=== PATIENT | female | born 1970 | race American Indian/Alaskan Native ===

== ENCOUNTER 2018-08-02 11:31 | Inpatient (IN) | payer MEDICARE ==
[2018-08-02] MEDS ORDERED: NACL 0.9% 1000 ML 1,000 ML IV ONE (11:47)
--- NOTE | 2018-08-02 12:05 | Emergency Department Report ---
ED Neuro Deficit HPI - General Chief Complaint: Hyperglycemia Stated Complaint: SLURRED SPEECH Time Seen by Provider: 08/02/18 11:34 Source: family, EMS Mode of arrival: Stretcher Limitations: Other - History of Present Illness Initial Comments: Ms. Fox is a 48 yo female with hx of TBI, Moyamoya disease, type 2 diabetes, seizure disorder, dysplipidemia who presents with elevate blood sugar and slurred speech. The majority of history was obtained from Hortencia HOLLAND/best friend . Ms. Fox was recently seen in hospital in ER in [place] for elevated blood sugar. She then was hospitalized and recently discharged [facility] for elevated blood sugar. Since blood sugar was greater than 300, patient and roommate called 911. She has had slurred speech since Thursday. Slurred speech according to both POA and roommate occurs with elevated blood sugar. She has been evaluated at [facility] and [facility] for slurred speech episodes. According to POA, stroke has been ruled out with abnormal speech episodes. She lives between [place] and [place]. She is followed regularly by her physicians in the [facility]. Normally, she is fluid, articulate speech. Diabetes has been uncontrolled. She is now on sliding scale insulin. POA does not feel that Ms. oFx takes care of health. Ms. Fox states "I'm all right." She denies pain or illness. She desires food to eat. -: Gradual, days(s) (3) Location: speech History of same: Yes Place: home Severity: mild Improves With: medication Worsens With: other (elevated blood sugar) Context: gradual onset Associated Symptoms: denies other symptoms - Related Data Allergies/Adverse Reactions: Allergies Allergy/AdvReac Type Severity Reaction Status Date / Time No Known Allergies Allergy Unverified 08/02/18 11:54 ED Review of Systems ROS: Stated complaint: SLURRED SPEECH Other details as noted in HPI Comment: All other systems reviewed and negative Constitutional: denies: fever, malaise ENT: denies: ear pain Respiratory: denies: cough Cardiovascular: denies: chest pain ED Past Medical Hx - Past Medical History Previous Medical History?: Yes Hx Diabetes: Yes (type 2-uncontrolled) Hx Seizures: Yes Additional medical history: hyperlipidemia. moyamoya syndrome-causing intracranial arteriopathy. metabolic encephalopathy - Surgical History Past Surgical History?: Yes Additional Surgical History: brain surgery x2 due to moyamoya disease - Social History Smoking Status: Never Smoker Substance Use Type: None ED Neuro Physical Exam - General Limitations: Other General appearance: alert, in no apparent distress Suspected Stroke: Yes - Head Head exam: Present: atraumatic, normocephalic - Eye Eye exam: Present: normal appearance - ENT ENT exam: Present: mucous membranes moist - Neck Neck exam: Present: normal inspection, full ROM. Absent: tenderness, meningismus - Respiratory Respiratory exam: Present: normal lung sounds bilaterally. Absent: respiratory distress, wheezes, rales, rhonchi - Cardiovascular Cardiovascular Exam: Present: regular rate, normal rhythm, normal heart sounds. Absent: systolic murmur, diastolic murmur, rubs, gallop - GI/Abdominal GI/Abdominal exam: Present: soft, normal bowel sounds. Absent: distended, tenderness, guarding, rebound - Extremities Exam Extremities exam: Present: normal inspection - Back Exam Back exam: Present: normal inspection - Neurological Exam Neurological exam: Present: alert, oriented X3 - NIHSS Assessment Interval: Baseline 1a. Level of Consciousness: alert/keenly responsive 1b. LOC Questions: answers both correctly 1c. LOC Commands: performs tasks correctly 2. Best Gaze: normal 3. Visual: no visual loss 4. Facial Palsy: normal symmetrical movement 5b. Motor Arm Right: no drift 5a. Motor Arm Left: no drift 6a. Motor Leg Left: no drift 6b. Motor Leg Right: no drift 7. Limb Ataxia: absent 8. Sensory: normal 9. Best Language: no aphasia 10. Dysarthria: mild/moderate dysarthria 11. Extinction/Inattention: no abnormality Total Score: 1 Stroke Severity: Minor Stroke - Psychiatric Psychiatric exam: Present: normal affect, normal mood - Skin Skin exam: Present: warm, dry, intact, normal color. Absent: rash ED Course Vital Signs 08/02/18 08/02/18 08/02/18 11:38 11:39 11:41 Temperature 98.6 F Pulse Rate 108 H Blood Pressure 142/87 O2 Sat by Pulse 98 97 Oximetry - Lab Data Result diagrams: 08/02/18 12:03 08/02/18 12:03 Lab Results 08/02/18 08/02/18 08/02/18 Range/Units 11:53 11:58 12:03 WBC 8.7 (4.5-11.0) K/mm3 RBC 5.91 H (3.65-5.03) M/mm3 Hgb 12.4 (10.1-14.3) gm/dl Hct 37.9 (30.3-42.9) % MCV 64 L (79-97) fl MCH 21 L (28-32) pg MCHC 33 (30-34) % RDW 15.6 H (13.2-15.2) % Plt Count 276 (140-440) K/mm3 Lymph % (Auto) 39.1 H (13.4-35.0) % [place] % (Auto) 8.4 H (0.0-7.3) % Eos % (Auto) 1.5 (0.0-4.3) % Baso % (Auto) 0.6 (0.0-1.8) % Lymph # 3.4 (1.2-5.4) K/mm3 [place] # 0.7 (0.0-0.8) K/mm3 Eos # 0.1 (0.0-0.4) K/mm3 Baso # 0.0 (0.0-0.1) K/mm3 Seg Neutrophils % 50.4 (40.0-70.0) % Seg Neutrophils # 4.4 (1.8-7.7) K/mm3 PT (12.2-14.9) Sec. INR (0.87-1.13) Sodium (137-145) mmol/L Potassium (3.6-5.0) mmol/L Chloride (98-107) mmol/L Carbon Dioxide (22-30) mmol/L Anion Gap mmol/L BUN (7-17) mg/dL Creatinine (0.7-1.2) mg/dL Estimated GFR ml/min BUN/Creatinine Ratio % Glucose (65-100) mg/dL POC Glucose 200 H (70-105) Calcium (8.4-10.2) mg/dL Troponin T < 0.010 (0.00-0.029) ng/mL Urine Color (Yellow) Urine Turbidity (Clear) Urine pH (5.0-7.0) Ur Specific [place] (1.003-1.030) Urine Protein (Negative) mg/dL Urine Glucose (UA) (Negative) mg/dL Urine Ketones (Negative) mg/dL Urine Blood (Negative) Urine Nitrite (Negative) Urine Bilirubin (Negative) Urine Urobilinogen (<2.0) mg/dL Ur Leukocyte Esterase (Negative) Urine WBC (Auto) (0.0-6.0) /HPF Urine RBC (Auto) (0.0-6.0) /HPF U Epithel Cells (Auto) (0-13.0) /HPF Urine Mucus /HPF Urine Opiates Screen Urine Methadone Screen Ur Barbiturates Screen Ur Phencyclidine Scrn Ur Amphetamines Screen U Benzodiazepines Scrn Urine Cocaine Screen U Marijuana (THC) Screen Drugs of Abuse Note 08/02/18 08/02/18 08/02/18 Range/Units 12:03 12:03 13:38 WBC (4.5-11.0) K/mm3 RBC (3.65-5.03) M/mm3 Hgb (10.1-14.3) gm/dl Hct (30.3-42.9) % MCV (79-97) fl MCH (28-32) pg MCHC (30-34) % RDW (13.2-15.2) % Plt Count (140-440) K/mm3 Lymph % (Auto) (13.4-35.0) % [place] % (Auto) (0.0-7.3) % Eos % (Auto) (0.0-4.3) % Baso % (Auto) (0.0-1.8) % Lymph # (1.2-5.4) K/mm3 [place] # (0.0-0.8) K/mm3 Eos # (0.0-0.4) K/mm3 Baso # (0.0-0.1) K/mm3 Seg Neutrophils % (40.0-70.0) % Seg Neutrophils # (1.8-7.7) K/mm3 PT 13.0 (12.2-14.9) Sec. INR 0.93 (0.87-1.13) Sodium 135 L (137-145) mmol/L Potassium 3.5 L (3.6-5.0) mmol/L Chloride 97.8 L (98-107) mmol/L Carbon Dioxide 21 L (22-30) mmol/L Anion Gap 20 mmol/L BUN 14 (7-17) mg/dL Creatinine 1.0 (0.7-1.2) mg/dL Estimated GFR 59 ml/min BUN/Creatinine Ratio 14 % Glucose 229 H (65-100) mg/dL POC Glucose (70-105) Calcium 9.6 (8.4-10.2) mg/dL Troponin T (0.00-0.029) ng/mL Urine Color Yellow (Yellow) Urine Turbidity Clear (Clear) Urine pH 5.0 (5.0-7.0) Ur Specific [place] 1.021 (1.003-1.030) Urine Protein 30 mg/dl (Negative) mg/dL Urine Glucose (UA) 150 (Negative) mg/dL Urine Ketones Tr (Negative) mg/dL Urine Blood Neg (Negative) Urine Nitrite Neg (Negative) Urine Bilirubin Neg (Negative) Urine Urobilinogen < 2.0 (<2.0) mg/dL Ur Leukocyte Esterase Lg (Negative) Urine WBC (Auto) 42.0 H (0.0-6.0) /HPF Urine RBC (Auto) 3.0 (0.0-6.0) /HPF U Epithel Cells (Auto) 2.0 (0-13.0) /HPF Urine Mucus Few /HPF Urine Opiates Screen Urine Methadone Screen Ur Barbiturates Screen Ur Phencyclidine Scrn Ur Amphetamines Screen U Benzodiazepines Scrn Urine Cocaine Screen U Marijuana (THC) Screen Drugs of Abuse Note 08/02/18 Range/Units 13:38 WBC (4.5-11.0) K/mm3 RBC (3.65-5.03) M/mm3 Hgb (10.1-14.3) gm/dl Hct (30.3-42.9) % MCV (79-97) fl MCH (28-32) pg MCHC (30-34) % RDW (13.2-15.2) % Plt Count (140-440) K/mm3 Lymph % (Auto) (13.4-35.0) % [place] % (Auto) (0.0-7.3) % Eos % (Auto) (0.0-4.3) % Baso % (Auto) (0.0-1.8) % Lymph # (1.2-5.4) K/mm3 [place] # (0.0-0.8) K/mm3 Eos # (0.0-0.4) K/mm3 Baso # (0.0-0.1) K/mm3 Seg Neutrophils % (40.0-70.0) % Seg Neutrophils # (1.8-7.7) K/mm3 PT (12.2-14.9) Sec. INR (0.87-1.13) Sodium (137-145) mmol/L Potassium (3.6-5.0) mmol/L Chloride (98-107) mmol/L Carbon Dioxide (22-30) mmol/L Anion Gap mmol/L BUN (7-17) mg/dL Creatinine (0.7-1.2) mg/dL Estimated GFR ml/min BUN/Creatinine Ratio % Glucose (65-100) mg/dL POC Glucose (70-105) Calcium (8.4-10.2) mg/dL Troponin T (0.00-0.029) ng/mL Urine Color (Yellow) Urine Turbidity (Clear) Urine pH (5.0-7.0) Ur Specific [place] (1.003-1.030) Urine Protein (Negative) mg/dL Urine Glucose (UA) (Negative) mg/dL Urine Ketones (Negative) mg/dL Urine Blood (Negative) Urine Nitrite (Negative) Urine Bilirubin (Negative) Urine Urobilinogen (<2.0) mg/dL Ur Leukocyte Esterase (Negative) Urine WBC (Auto) (0.0-6.0) /HPF Urine RBC (Auto) (0.0-6.0) /HPF U Epithel Cells (Auto) (0-13.0) /HPF Urine Mucus /HPF Urine Opiates Screen Presumptive negative Urine Methadone Screen Presumptive negative Ur Barbiturates Screen Presumptive negative Ur Phencyclidine Scrn Presumptive negative Ur Amphetamines Screen Presumptive negative U Benzodiazepines Scrn Presumptive negative Urine Cocaine Screen Presumptive negative U Marijuana (THC) Screen Presumptive negative Drugs of Abuse Note Disclamer 08/02/18 12:57 EKG obtained 12:33 Rate 90 beats a minute normal axis normal intervals diffuse T-wave inversion no ST elevation - Radiology Data Radiology results: report reviewed, image reviewed interpreted by me: ap chest: no acute process according to head ct radiology report no acute process - Medical Decision Making Ms. Fox presents with elevated blood sugar and slurred speech. Dysarthria is present without other associated signs or symptoms of CVA. I discussed case with teleneurologist Dr. James. She did explained that ischemic and hemorrhagic CVA are possible with Moyamoya. TPA not indicated due to time of onset and possibility of additional etiology other than CVA. Will be admitted to hospitalist service for further evaluation as recommended by Dr. James aspirin provided in ED NIHSS 1 - Thrombolytic Inclusion/Exclusion Thrombolytic Exclusion Criteria: Symptom Onset > 3 Hours Thrombolytic Contraindications: Rapidily Improving s/s Critical care attestation.: If time is entered above; I have spent that time in minutes in the direct care of this critically ill patient, excluding procedure time. ED Disposition Clinical Impression: Dysarthria, Diabetes mellitus, Meeks meeks disease Disposition: OP ADMIT IP TO THIS HOSP Is pt being admited?: Yes Does the pt Need Aspirin: Yes Condition: Stable
[2018-08-02] MEDS ORDERED: HumuLIN R IV ONE (12:19)
[2018-08-02 12:22] LABS: Calcium 9.6 mg/dL (8.4-10.2)
[2018-08-02 12:28] LABS: Basophils % (Auto) 0.6 % (0.0-1.8); Eosinophils # (Auto) 0.1 K/mm3 (0.0-0.4); Eosinophils % (Auto) 1.5 % (0.0-4.3); Hematocrit 37.9 % (30.3-42.9); Hemoglobin 12.4 gm/dl (10.1-14.3); Lymphocytes # (Auto) 3.4 K/mm3 (1.2-5.4); Lymphocytes % (Auto) 39.1 % (13.4-35.0); Mean Corpuscular HGB Conc 33 % (30-34); Monocytes # (Auto) 0.7 K/mm3 (0.0-0.8); Monocytes % (Auto) 8.4 % (0.0-7.3); Platelet Count 276 K/mm3 (140-440); Red Blood Count 5.91 M/mm3 (3.65-5.03); Red Cell Distribution Width 15.6 % (13.2-15.2)
[2018-08-02 12:33] LABS: Mean Corpuscular Volume 64 fl (79-97)
[2018-08-02 12:40] LABS: INR 0.93 (0.87-1.13)
[2018-08-02 14:00] LABS: Bilirubin,Urine NEG (Negative); Blood,Urine NEG (Negative); Color,Urine Yellow (Yellow); Mucus,Urine FEW /HPF; Urobilinogen,Urine < 2.0 mg/dL (<2.0)
[2018-08-02 14:05] LABS: Amphetamine Screen,Urine PRESUMPTIVE NEGATIVE; Benzodiazepines Screen,Urine PRESUMPTIVE NEGATIVE; Cannabinoid Screen,Urine PRESUMPTIVE NEGATIVE; Cocaine Screen,Urine PRESUMPTIVE NEGATIVE; Methadone Screen,Urine PRESUMPTIVE NEGATIVE; Opiate Screen,Urine PRESUMPTIVE NEGATIVE
--- NOTE | 2018-08-02 14:10 | Cat Scan Report ---
FINAL REPORT EXAM: CT HEAD/BRAIN WO CON HISTORY: Stroke symptoms TECHNIQUE: CT of the head was performed. No intravenous contrast was administered. PRIORS: None. FINDINGS: There is an old lacunar infarct in right basal ganglia. There is no evidence of intracranial hemorrhage. There is no edema, mass effect or midline shift. There are no abnormal extra-axial fluid collections. The ventricles are appropriate for brain volume. There is no skull fracture seen. There old craniotomies bilaterally. The visualized aspects of the sinuses are clear. IMPRESSION: There is no acute intracranial abnormality identified.
[2018-08-02] MEDS ORDERED: BABY ASPIRIN PO ONE (14:16)
--- NOTE | 2018-08-02 14:18 | XRay Report ---
FINAL REPORT EXAM: XR CHEST 1V AP HISTORY: slurred speech TECHNIQUE: Chest, portable upright PRIORS: None. FINDINGS: The heart size is normal. Mediastinal contours are normal. Pulmonary vasculature is not congested. The lungs are clear. There are no pleural effusion seen. There is no evidence of pneumothorax. IMPRESSION: There is no acute abnormality identified.
--- NOTE | 2018-08-02 14:27 | History and Physical Report ---
History of Present Illness Chief complaint: Im rajipuraisidoro now History of present illness: 48 YO Female with TBI, Moyamoya Disease, DM, Seizure Disorder, HLD presents to ED for evaluation. Pt is confused and unable to provide detailed history. Pt history provided by family who is at bedside during exam and interview. As per family, the patient has experienced multiple episodes of elevated blood glucose as well as slurred speech and confusion over the past 3 days with persistent symptoms over the same time frame. EMS notified and upon evaluation the patient was found to have a neurologic deficit. A code stroke was called and the patient was transported to [facility] for further care and evaluation. Pt seen and evaluated in ED and found to have symptoms consistent with CVA, Encephalopathy, and UTI, and Acidosis. Pt admitted to telemetry, and initiated on CVA protocol. No further history obtainable. Past History Past Medical History: diabetes, hyperlipidemia, seizures, other (MoyaMoya Syndrome, Encephalopathy) Past Surgical History: Other (Brain Surgery) Social history: single. denies: smoking, alcohol abuse, prescription drug abuse Family history: diabetes Medications and Allergies Allergies Allergy/AdvReac Type Severity Reaction Status Date / Time No Known Allergies Allergy Unverified 08/02/18 11:54 Home Medications Medication Instructions Recorded Confirmed Last Taken Type ARIPiprazole [Aripiprazole] 5 mg PO QHS 08/02/18 08/02/18 Unknown History Amitriptyline [Elavil] 25 mg PO BID 08/02/18 08/02/18 Unknown History Amlodipine Bes/Olmesartan Med 1 each PO DAILY 08/02/18 08/02/18 Unknown History [Amlodipine-Olmesartan 10-40 mg] Aspirin [Adult Aspirin] 81 mg PO DAILY 08/02/18 08/02/18 Unknown History Clopidogrel [Plavix] 75 mg PO QDAY 08/02/18 08/02/18 Unknown History Diazepam [Valium] 5 mg PO BID 08/02/18 08/02/18 Unknown History Duloxetine HCl [DULoxetine] 60 mg PO BID 08/02/18 08/02/18 Unknown History Ibuprofen [Motrin 800 MG tab] 800 mg PO Q6H 08/02/18 08/02/18 Unknown History Magnesium Oxide [Mag-Ox] 400 mg PO QDAY 08/02/18 08/02/18 Unknown History Meloxicam 7.5 mg PO BID 08/02/18 08/02/18 Unknown History Pravastatin [Pravachol (Nf)] 40 mg PO QHS 08/02/18 08/02/18 Unknown History Pregabalin [Lyrica] 50 mg PO DAILY 08/02/18 08/02/18 Unknown History Topiramate [Topamax TAB] 50 mg PO BID 08/02/18 08/02/18 Unknown History glipiZIDE [Glipizide] 5 mg PO BID 08/02/18 08/02/18 Unknown History Review of Systems ROS unobtainable: due to mental status Exam - Constitutional Vitals: Temp Pulse Resp BP Pulse Ox 98.6 F 108 H 142/87 97 08/02/18 11:41 08/02/18 11:41 08/02/18 11:39 08/02/18 11:39 General appearance: Present: mild distress - EENT Eyes: Present: PERRL ENT: hearing intact, clear oral mucosa - Neck Neck: Present: supple, normal ROM - Respiratory Respiratory effort: normal Respiratory: bilateral: CTA - Cardiovascular Heart Sounds: Present: S1 & S2. Absent: rub, click - Extremities Extremities: pulses symmetrical, No edema Peripheral Pulses: within normal limits - Abdominal General gastrointestinal: Present: soft, non-tender, non-distended, normal bowel sounds Female genitourinary: Present: normal - Integumentary Integumentary: Present: clear, warm, dry - Musculoskeletal Musculoskeletal: strength equal bilaterally, generalized weakness - Psychiatric Psychiatric: no appropriate mood/affect, no intact judgment & insight, no memory intact - Neurologic Neurologic: moves all extremities, no gait normal Results - Labs CBC & Chem 7: 08/02/18 12:03 08/02/18 12:03 Labs: Abnormal lab results 08/02/18 08/02/18 08/02/18 Range/Units 11:53 12:03 12:03 RBC 5.91 H (3.65-5.03) M/mm3 MCV 64 L (79-97) fl MCH 21 L (28-32) pg RDW 15.6 H (13.2-15.2) % Lymph % (Auto) 39.1 H (13.4-35.0) % [place] % (Auto) 8.4 H (0.0-7.3) % Sodium 135 L (137-145) mmol/L Potassium 3.5 L (3.6-5.0) mmol/L Chloride 97.8 L (98-107) mmol/L Carbon Dioxide 21 L (22-30) mmol/L Glucose 229 H (65-100) mg/dL POC Glucose 200 H (70-105) Urine WBC (Auto) (0.0-6.0) /HPF 08/02/18 Range/Units 13:38 RBC (3.65-5.03) M/mm3 MCV (79-97) fl MCH (28-32) pg RDW (13.2-15.2) % Lymph % (Auto) (13.4-35.0) % [place] % (Auto) (0.0-7.3) % Sodium (137-145) mmol/L Potassium (3.6-5.0) mmol/L Chloride (98-107) mmol/L Carbon Dioxide (22-30) mmol/L Glucose (65-100) mg/dL POC Glucose (70-105) Urine WBC (Auto) 42.0 H (0.0-6.0) /HPF Assessment and Plan - Patient Problems (1) CVA (cerebral vascular accident) Current Visit: Yes Status: Suspected Qualifiers: Precerebral and cerebral artery: unspecified precerebral artery Plan to address problem: Admit to telemetry, Stroke protocol: CT head, MRI brain, MRA Brain, Echo, carotid doppler, antiplatelet therapy, lipid panel, statin therapy, PT/OT/ Speech Therapy. (2) UTI (urinary tract infection) Current Visit: Yes Status: Acute Qualifiers: Encounter type: initial encounter Plan to address problem: IV antibiotic therapy, urinalysis, CBC, CMP (3) Acidosis Current Visit: Yes Status: Acute Plan to address problem: IVF resuscitation therapy, monitor uop q shift, (4) Meeks meeks disease Current Visit: No Status: Acute Plan to address problem: Supportive care. neurology consulted. (5) DVT prophylaxis Current Visit: Yes Status: Acute Plan to address problem: SCD to BLE while in bed.
[2018-08-02] MEDS ORDERED: PROVENTIL IH PRN ×2 (14:30)
[2018-08-02] MEDS ORDERED: SODIUM CHLORIDE FLUSH SYRINGE 10 ML IV PRN ×2 (14:30)
[2018-08-02] MEDS ORDERED: MILK OF MAGNESIA PO PRN (14:30)
[2018-08-02] MEDS ORDERED: DULCOLAX PR PRN (14:30)
[2018-08-02] MEDS ORDERED: ZOFRAN IV PRN ×2 (14:30)
[2018-08-02] MEDS ORDERED: PHENERGAN PR PRN (14:30)
[2018-08-02] MEDS ORDERED: REGLAN PO PRN (14:30)
[2018-08-02] MEDS ORDERED: TYLENOL PO PRN ×2 (14:30)
--- NOTE | 2018-08-02 16:29 | Vascular Lab Report ---
FINAL REPORT EXAM: VL CAROTID DUPLEX BILAT HISTORY: stroke COMPARISON: None. TECHNIQUE: Duplex Doppler ultrasound of the carotid arteries was performed. FINDINGS: There is smooth homogeneous plaque in the right common carotid bulb and proximal right internal carot id artery causing less than 50 percent stenosis. There is antegrade flow in the right vertebral arter y. There is smooth homogeneous plaque in the left internal carotid artery causing less than 50 percent s tenosis. The left common carotid artery and external carotid artery are patent. There is antegrade fl ow in the left vertebral artery. Peak systolic velocities (cm/sec) are as follows: Right common carotid artery: 90 Right internal carotid artery: 68.4 Right external carotid artery: 88 Left common carotid artery: 100.5 Left internal carotid artery: 51.3 Left external carotid artery: 55.4 Peak systolic velocity ratio between the right internal carotid artery and the right common carotid a rtery: 0.76 Peak systolic velocity ratio between the left internal carotid artery and left common carotid artery: 0.51 IMPRESSION: Homogeneous plaque in the bilateral internal carotid arteries causing less than 50 percent stenosis.
--- NOTE | 2018-08-02 20:38 | Magnetic Resonance Report ---
FINAL REPORT PROCEDURE: MR BRAIN WO CON TECHNIQUE: Magnetic resonance imaging of the brain was performed without contrast material. HISTORY: strokeER inpatient COMPARISON: CT head 08/02/2018. FINDINGS: Diffusion-weighted images failed to demonstrate any hyperintense signal abnormalities. Old lacunar in farcts are noted involving right basal ganglia. An intra-axial or extra-axial fluid collection or mas s lesion is not identified. Posterior fossa structures are unremarkable. Cerebral sulci and ventricle s are within normal limits for patient's age. There is no shift of midline structures. Bilateral inte rnal artery canals and their contents are unremarkable. Pituitary gland demonstrates normal signal ch aracteristics and size. IMPRESSION: Old lacunar infarcts right basal ganglia No acute intracranial abnormality
--- NOTE | 2018-08-02 20:43 | Magnetic Resonance Report ---
FINAL REPORT PROCEDURE: MR MRA/MRV HEAD WO CON TECHNIQUE: Axial 3-D [id number] MR angiography of the false pass of Jimenez and brain was performed. The source images were reconstructed in various views using maximum intensity projection. HISTORY: strokeER inpatient COMPARISON: No prior studies are available for comparison. FINDINGS: This study is limited due to motion artifacts Vertebral arteries: Normal. Basilar artery: Normal. Internal carotid arteries: Normal. Anterior cerebral arteries: Normal. Middle cerebral arteries: Normal. Posterior cerebral arteries: Normal. Bilateral posterior communicating arteries are patent which is a normal variation Branch occlusions: None. Vascular malformations: None. IMPRESSION: Limited study due to patient motion Otherwise unremarkable study
[2018-08-02] MEDS: AMBIEN PO PRN (23:50)
[2018-08-02] MEDS: SODIUM CHLORIDE FLUSH SYRINGE 10 ML IV SCH (23:51)
[2018-08-03 08:00] LABS: Chol/HDL Ratio 11.18 %; HDL Cholesterol 27 mg/dL (40-59)
[2018-08-03 09:34] LABS: LDL Cholesterol,Direct TNR mg/dL (50-130)
[2018-08-03] MEDS: ASPIRIN PO SCH (12:14)
[2018-08-03] MEDS: ROCEPHIN/NS 1 GM/50 ML 1 GM/50 ML BAG IV SCH (12:18)
--- NOTE | 2018-08-03 13:17 | Progress Note ---
Assessment and Plan Assessment and plan: --CVA/TIA; Aspirin and statin MRI brain; old lacunar infarct right basal ganglia, no acute intracranial abnormality noted Laboratory and limited study due to patient motion, unremarkable study Carotid Doppler; homogeneous plaque in the bilateral internal carotid arteries less than 50% stenosis Echo; pending; --? Seizure disorder; seizure precautions, Ativan as needed --History of meeks meeks disease: Continue current management --Dyslipidemia; high intensity statin Lipitor 80 mg daily Low-cholesterol diet --Type 2 diabetes mellitus; uncontrolled Accu-Chek sliding scale coverage and ADA diet and oral hypoglycemics Check A1c --DVT prophylaxis; Lovenox History Interval history: Patient seen and examined medical records Admitted with neuro symptoms, neuro workup is in progress Patient also has history of seizure disorder Had an episode of jerking movements and twitching's of the angle of the mouth on the right side seizure this morning Resolved no post ictal phase Patient has mild slurring , slow speech Hospitalist Physical - Constitutional Vitals: Temp Pulse Resp BP Pulse Ox 98.7 F 106 H 18 120/82 96 08/03/18 07:39 08/03/18 07:39 08/03/18 07:39 08/03/18 07:39 08/03/18 07:39 General appearance: Present: mild distress, other (slow speech) - EENT Eyes: Present: PERRL, EOM intact - Neck Neck: Present: supple, normal ROM - Cardiovascular Rhythm: regular Heart Sounds: Present: S1 & S2 - Extremities Extremities: no ischemia, No edema - Abdominal General gastrointestinal: soft, non-tender, non-distended, normal bowel sounds - Integumentary Integumentary: Present: clear, warm - Psychiatric Psychiatric: appropriate mood/affect, cooperative - Neurologic Neurologic: moves all extremities Results - Labs CBC & Chem 7: 08/02/18 12:03 08/02/18 12:03 Labs: Laboratory Last Values WBC 8.7 K/mm3 (4.5-11.0) 08/02/18 12:03 RBC 5.91 M/mm3 (3.65-5.03) H 08/02/18 12:03 Hgb 12.4 gm/dl (10.1-14.3) 08/02/18 12:03 Hct 37.9 % (30.3-42.9) 08/02/18 12:03 MCV 64 fl (79-97) L 08/02/18 12:03 MCH 21 pg (28-32) L 08/02/18 12:03 MCHC 33 % (30-34) 08/02/18 12:03 RDW 15.6 % (13.2-15.2) H 08/02/18 12:03 Plt Count 276 K/mm3 (140-440) 08/02/18 12:03 Lymph % (Auto) 39.1 % (13.4-35.0) H 08/02/18 12:03 [place] % (Auto) 8.4 % (0.0-7.3) H 08/02/18 12:03 Eos % (Auto) 1.5 % (0.0-4.3) 08/02/18 12:03 Baso % (Auto) 0.6 % (0.0-1.8) 08/02/18 12:03 Lymph # 3.4 K/mm3 (1.2-5.4) 08/02/18 12:03 [place] # 0.7 K/mm3 (0.0-0.8) 08/02/18 12:03 Eos # 0.1 K/mm3 (0.0-0.4) 08/02/18 12:03 Baso # 0.0 K/mm3 (0.0-0.1) 08/02/18 12:03 Seg Neutrophils % 50.4 % (40.0-70.0) 08/02/18 12:03 Seg Neutrophils # 4.4 K/mm3 (1.8-7.7) 08/02/18 12:03 PT 13.0 Sec. (12.2-14.9) 08/02/18 12:03 INR 0.93 (0.87-1.13) 08/02/18 12:03 Sodium 135 mmol/L (137-145) L 08/02/18 12:03 Potassium 3.5 mmol/L (3.6-5.0) L 08/02/18 12:03 Chloride 97.8 mmol/L (98-107) L 08/02/18 12:03 Carbon Dioxide 21 mmol/L (22-30) L 08/02/18 12:03 Anion Gap 20 mmol/L 08/02/18 12:03 BUN 14 mg/dL (7-17) 08/02/18 12:03 Creatinine 1.0 mg/dL (0.7-1.2) 08/02/18 12:03 Estimated GFR 59 ml/min 08/02/18 12:03 BUN/Creatinine Ratio 14 % 08/02/18 12:03 Glucose 229 mg/dL (65-100) H 08/02/18 12:03 POC Glucose 294 (70-105) H 08/03/18 12:40 Calcium 9.6 mg/dL (8.4-10.2) 08/02/18 12:03 Troponin T < 0.010 ng/mL (0.00-0.029) 08/02/18 11:58 Triglycerides 1073 mg/dL (2-149) H 08/03/18 06:30 Cholesterol 302 mg/dL (50-199) H 08/03/18 06:30 LDL Cholesterol Direct TNR 08/03/18 06:30 HDL Cholesterol 27 mg/dL (40-59) L 08/03/18 06:30 Cholesterol/HDL Ratio 11.18 % 08/03/18 06:30 Urine Color Yellow (Yellow) 08/02/18 13:38 Urine Turbidity Clear (Clear) 08/02/18 13:38 Urine pH 5.0 (5.0-7.0) 08/02/18 13:38 Ur Specific [place] 1.021 (1.003-1.030) 08/02/18 13:38 Urine Protein 30 mg/dl mg/dL (Negative) 08/02/18 13:38 Urine Glucose (UA) 150 mg/dL (Negative) 08/02/18 13:38 Urine Ketones Tr mg/dL (Negative) 08/02/18 13:38 Urine Blood Neg (Negative) 08/02/18 13:38 Urine Nitrite Neg (Negative) 08/02/18 13:38 Urine Bilirubin Neg (Negative) 08/02/18 13:38 Urine Urobilinogen < 2.0 mg/dL (<2.0) 08/02/18 13:38 Ur Leukocyte Esterase Lg (Negative) 08/02/18 13:38 Urine WBC (Auto) 42.0 /HPF (0.0-6.0) H 08/02/18 13:38 Urine RBC (Auto) 3.0 /HPF (0.0-6.0) 08/02/18 13:38 U Epithel Cells (Auto) 2.0 /HPF (0-13.0) 08/02/18 13:38 Urine Mucus Few /HPF 08/02/18 13:38 Urine Opiates Screen Presumptive negative 08/02/18 13:38 Urine Methadone Screen Presumptive negative 08/02/18 13:38 Ur Barbiturates Screen Presumptive negative 08/02/18 13:38 Ur Phencyclidine Scrn Presumptive negative 08/02/18 13:38 Ur Amphetamines Screen Presumptive negative 08/02/18 13:38 U Benzodiazepines Scrn Presumptive negative 08/02/18 13:38 Urine Cocaine Screen Presumptive negative 08/02/18 13:38 U Marijuana (THC) Screen Presumptive negative 08/02/18 13:38 Drugs of Abuse Note Disclamer 08/02/18 13:38
[2018-08-03] MEDS ORDERED: ATIVAN IV PRN (13:39)
--- NOTE | 2018-08-03 17:35 | Consultation ---
History of Present Illness Consult date: 08/03/18 Chief complaint: Spells History of present illness: This is a 48 YO F with a history of meeks meeks disease and seizure disorder who presented to the Ed after having several spells. Her family member at bedside said she had been doing well until about the past 6 months. Pt satarting having more of these spells. Is compliant with meds. Noted to have trouble with speech and facial twitching. None noted now but remains dysarthric although family members says speech is better overall. Past History Past Medical History: diabetes, hyperlipidemia, seizures, other (MoyaMoya Syndrome, Encephalopathy) Past Surgical History: Other (Brain Surgery) Social history: single. denies: smoking, alcohol abuse, prescription drug abuse Family history: diabetes Medications and Allergies Allergies Allergy/AdvReac Type Severity Reaction Status Date / Time No Known Allergies Allergy Unverified 08/02/18 11:54 Home Medications Medication Instructions Recorded Confirmed Last Taken Type ARIPiprazole [Aripiprazole] 5 mg PO QHS 08/02/18 08/02/18 Unknown History Amitriptyline [Elavil] 25 mg PO BID 08/02/18 08/02/18 Unknown History Amlodipine Bes/Olmesartan Med 1 each PO DAILY 08/02/18 08/02/18 Unknown History [Amlodipine-Olmesartan 10-40 mg] Aspirin [Adult Aspirin] 81 mg PO DAILY 08/02/18 08/02/18 Unknown History Clopidogrel [Plavix] 75 mg PO QDAY 08/02/18 08/02/18 Unknown History Diazepam [Valium] 5 mg PO BID 08/02/18 08/02/18 Unknown History Duloxetine HCl [DULoxetine] 60 mg PO BID 08/02/18 08/02/18 Unknown History Ibuprofen [Motrin 800 MG tab] 800 mg PO Q6H 08/02/18 08/02/18 Unknown History Magnesium Oxide [Mag-Ox] 400 mg PO QDAY 08/02/18 08/02/18 Unknown History Meloxicam 7.5 mg PO BID 08/02/18 08/02/18 Unknown History Pravastatin [Pravachol (Nf)] 40 mg PO QHS 08/02/18 08/02/18 Unknown History Pregabalin [Lyrica] 50 mg PO DAILY 08/02/18 08/02/18 Unknown History Topiramate [Topamax TAB] 50 mg PO BID 08/02/18 08/02/18 Unknown History glipiZIDE [Glipizide] 5 mg PO BID 08/02/18 08/02/18 Unknown History Lantus 34 units SQ DAILY 08/03/18 08/03/18 Unknown History Active Meds: Active Medications Acetaminophen (Tylenol) 650 mg PO Q4H PRN PRN Reason: Pain MILD(1-3)/Fever >100.5/GILES Albuterol (Proventil) 2.5 mg IH Q3HRT PRN PRN Reason: Shortness Of Breath Amlodipine Besylate (Norvasc) 10 mg PO DAILY [facility] Aspirin (Aspirin) 325 mg PO QDAY [facility] Aspirin (Halfprin Ec) 81 mg PO DAILY [facility] Atorvastatin Calcium (Lipitor) 80 mg PO QHS [facility] Bisacodyl (Dulcolax) [address] QDAY PRN PRN Reason: Constipation Last Admin: 08/02/18 23:51 Dose: 10 mg Documented by: Clopidogrel Bisulfate (Plavix) 75 mg PO QDAY [facility] Diazepam (Valium) 5 mg PO BID [facility] Glipizide (Glucotrol) 5 mg PO BID [facility] Ceftriaxone Sodium (Rocephin/Ns 1 Gm/50 Ml) 1 gm in 50 mls @ 100 mls/hr IV Q24HR [facility]; Protocol Insulin Glargine (Lantus) 34 units SUB-Q QHS [facility] Lorazepam (Ativan) 1 mg IV Q2H PRN PRN Reason: Seizures Last Admin: 08/03/18 14:14 Dose: 1 mg Documented by: Losartan Potassium (Cozaar) 50 mg PO QDAY [facility] Magnesium Hydroxide (Milk Of Magnesia) 30 ml PO Q4H PRN PRN Reason: Constipation Metoclopramide HCl (Reglan) 10 mg PO Q6H PRN PRN Reason: Nausea And Vomiting Ondansetron HCl (Zofran) 4 mg IV Q8H PRN PRN Reason: Nausea And Vomiting Pravastatin Sodium (Pravachol) 40 mg PO QHS [facility] Promethazine HCl (Phenergan) [address] Q6H PRN PRN Reason: Nausea And Vomiting Sodium Chloride (Sodium Chloride Flush Syringe 10 Ml) 10 ml IV BID [facility] Last Admin: 08/02/18 23:51 Dose: 10 ml Documented by: Sodium Chloride (Sodium Chloride Flush Syringe 10 Ml) 10 ml IV PRN PRN PRN Reason: LINE FLUSH Topiramate (Topamax) 75 mg PO BID RAFFY Zolpidem Tartrate (Ambien) 5 mg PO QHS PRN PRN Reason: Sleep Last Admin: 08/02/18 23:50 Dose: 5 mg Documented by: Review of Systems Neurological: seizures, tremors Physical Examination - Vital Signs Vital Signs: Vital Signs Pulse Ox 98 08/02/18 11:38 - Constitutional General appearance: comfortable - EENT EENT: Present: PERRL - Respiratory Respiratory: Present: lungs clear - Cardiovascular Cardiovascular: Present: regular rate - Gastrointestinal Gastrointestinal: Present: normoactive bowel sounds - Neurologic Cranial nerve examination: PERRL, EOMI, V1/V2/V3 grossly intact, face symmetric, tongue midline Speech examination: other (dyarthria noted) Motor examination - right side: 5/5: biceps, triceps, wrist flexion, wrist ext ension, 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 Level of Consciousness: alert/keenly responsive - LOC Questions 1b. LOC Questions: answers both correctly - LOC Command 1c. LOC Commands: performs tasks correctly - Best Gaze 2. Best Gaze: normal - Visual 3. Visual: no visual loss - Facial Palsy 4. Facial Palsy: normal symmetrical movement - Motor Arm 5b. Motor Arm Right: no drift - Motor Leg 6a. Motor Leg Left: no drift - Limb Ataxia 7. Limb Ataxia: absent - Sensory 8. Sensory: normal - Best Language 9. Best Language: no aphasia - Dysarthria 10. Dysarthria: mild/moderate dysarthria - Extinction and Inattention 11. Extinction/Inattention: no abnormality Results - Laboratory Findings CBC and BMP: 08/02/18 12:03 08/02/18 12:03 Abnormal Lab Findings: Abnormal Labs 08/02/18 08/02/18 08/02/18 11:53 12:03 12:03 RBC 5.91 H MCV 64 L MCH 21 L RDW 15.6 H Lymph % (Auto) 39.1 H Hand % (Auto) 8.4 H Sodium 135 L Potassium 3.5 L Chloride 97.8 L Carbon Dioxide 21 L Glucose 229 H POC Glucose 200 H Triglycerides Cholesterol HDL Cholesterol Urine WBC (Auto) 08/02/18 08/02/18 08/03/18 13:38 23:59 06:04 RBC MCV MCH RDW Lymph % (Auto) Hand % (Auto) Sodium Potassium Chloride Carbon Dioxide Glucose POC Glucose 211 H 145 H Triglycerides Cholesterol HDL Cholesterol Urine WBC (Auto) 42.0 H 08/03/18 08/03/18 08/03/18 06:30 10:06 12:40 RBC MCV MCH RDW Lymph % (Auto) Hand % (Auto) Sodium Potassium Chloride Carbon Dioxide Glucose POC Glucose 360 H 294 H Triglycerides 1073 H Cholesterol 302 H HDL Cholesterol 27 L Urine WBC (Auto) 08/03/18 16:25 RBC MCV MCH RDW Lymph % (Auto) Hand % (Auto) Sodium Potassium Chloride Carbon Dioxide Glucose POC Glucose 395 H Triglycerides Cholesterol HDL Cholesterol Urine WBC (Auto) - Diagnostic Findings Additional findings: MRI Brain no acute ischemia MRA Brain no large vessel occlusion Assessment and Plan This is a 48 YO F with spells that sound like breakthru focal seizure. Pt is at risk for increased seizure with all of her co morbidities. She has not had an increase in her AED dose recently. REcommend: Increase topiramate to 75 mg BID- no current side effects COntinue to control all medical issues as you are doing Pt has close follow up with Neurology that she should keep if at all possible MRI/A reviewed, nothing acute POC discussed with pt and family at bedside, all questions answered. Call with questions.
[2018-08-03] MEDS ORDERED: ATIVAN IV ONE (18:00)
[2018-08-03] MEDS: SODIUM CHLORIDE FLUSH SYRINGE 10 ML IV SCH ×2 (19:17→21:31)
[2018-08-03] MEDS: VALIUM PO SCH (21:30)
[2018-08-03] MEDS: PRAVACHOL PO SCH (21:30)
[2018-08-03] MEDS: GLUCOTROL PO SCH (21:30)
[2018-08-03] MEDS: TOPAMAX PO SCH (21:35)
[2018-08-03] MEDS ORDERED: NON-FORMULARY (Topiramate [Topamax Tab] 50 MG) PO SCH (22:00)
[2018-08-03] MEDS ORDERED: TOPAMAX PO SCH (22:00)
[2018-08-03] MEDS ORDERED: LANTUS SUB-Q SCH (22:00)
[2018-08-04] MEDS ORDERED: AMLODIPINE BES PO SCH ×2 (10:00)
[2018-08-04] MEDS ORDERED: OLMESARTAN MED PO SCH ×2 (10:00)
[2018-08-04] MEDS: GLUCOTROL PO SCH ×2 (13:23→22:35)
[2018-08-04] MEDS: PLAVIX PO SCH (13:23)
[2018-08-04] MEDS: VALIUM PO SCH ×2 (13:23→22:35)
[2018-08-04] MEDS: NORVASC PO SCH (13:23)
[2018-08-04] MEDS: TOPAMAX PO SCH ×2 (13:23→22:36)
[2018-08-04] MEDS: ASPIRIN PO SCH (13:24)
[2018-08-04] MEDS: HALFPRIN EC PO SCH (13:24)
[2018-08-04] MEDS: SODIUM CHLORIDE FLUSH SYRINGE 10 ML IV SCH ×2 (13:24→22:36)
[2018-08-04] MEDS: ROCEPHIN/NS 1 GM/50 ML 1 GM/50 ML BAG IV SCH (13:24)
[2018-08-04] MEDS: COZAAR PO SCH (17:56)
[2018-08-04] MEDS: AMBIEN PO PRN (22:34)
[2018-08-04] MEDS: PRAVACHOL PO SCH (22:35)
[2018-08-04] MEDS: LANTUS SUB-Q SCH (22:36)
--- NOTE | 2018-08-04 23:47 | Progress Note ---
Assessment and Plan Assessment and plan: --CVA/TIA; aspirin and statin Physical therapy occupational therapy Supportive care --Dysarthria; repeat getting hospital stay Outpatient upon discharge --History of seizure disorder; breakthrough seizures Neurology evaluated the patient, increase Topamax Ativan as needed, seizure precautions --Dyslipidemia; continue lipid-lowering medications --h/o Burgos Moyal disease; --Diabetes mellitus2; uncontrolled Accu-Chek sliding scale coverage and ADA diet, just long-acting insulin Twice a day dose, diabetic education, nutrition consult --DVT prophylaxis; lovenox Closely monitor the patient and not just the management as needed Discharge planning. per Case management I talked extensively discussed patient's condition treatment and discharge planning with the patient's power of solution analyst Ms.Janae Valdovinos I answered all her questions Possible discharge in 1-2 days if stable History Interval history: Patient seen and examined medical records reviewed No new events reported by the nursing staff Alert awake oriented 3 Slow speech Vital signs noted Hospitalist Physical - Constitutional Vitals: Temp Pulse Resp BP Pulse Ox 98.6 F 111 H 17 141/94 97 08/04/18 19:46 08/04/18 19:46 08/04/18 19:46 08/04/18 19:46 08/04/18 19:46 General appearance: Present: no acute distress, well-nourished, other (slow speech) - EENT Eyes: Present: PERRL, EOM intact - Neck Neck: Present: supple, normal ROM - Respiratory Respiratory effort: normal Respiratory: bilateral: diminished, negative: rales, rhonchi, wheezing - Cardiovascular Rhythm: regular Heart Sounds: Present: S1 & S2 - Extremities Extremities: no ischemia, No edema - Abdominal General gastrointestinal: soft, non-tender, non-distended, normal bowel sounds - Integumentary Integumentary: Present: clear, warm - Psychiatric Psychiatric: appropriate mood/affect, cooperative - Neurologic Neurologic: CNII-XII intact, moves all extremities Results - Labs CBC & Chem 7: 08/02/18 12:03 08/02/18 12:03 Labs: Laboratory Last Values WBC 8.7 K/mm3 (4.5-11.0) 08/02/18 12:03 RBC 5.91 M/mm3 (3.65-5.03) H 08/02/18 12:03 Hgb 12.4 gm/dl (10.1-14.3) 08/02/18 12:03 Hct 37.9 % (30.3-42.9) 08/02/18 12:03 MCV 64 fl (79-97) L 08/02/18 12:03 MCH 21 pg (28-32) L 08/02/18 12:03 MCHC 33 % (30-34) 08/02/18 12:03 RDW 15.6 % (13.2-15.2) H 08/02/18 12:03 Plt Count 276 K/mm3 (140-440) 08/02/18 12:03 Lymph % (Auto) 39.1 % (13.4-35.0) H 08/02/18 12:03 [place] % (Auto) 8.4 % (0.0-7.3) H 08/02/18 12:03 Eos % (Auto) 1.5 % (0.0-4.3) 08/02/18 12:03 Baso % (Auto) 0.6 % (0.0-1.8) 08/02/18 12:03 Lymph # 3.4 K/mm3 (1.2-5.4) 08/02/18 12:03 [place] # 0.7 K/mm3 (0.0-0.8) 08/02/18 12:03 Eos # 0.1 K/mm3 (0.0-0.4) 08/02/18 12:03 Baso # 0.0 K/mm3 (0.0-0.1) 08/02/18 12:03 Seg Neutrophils % 50.4 % (40.0-70.0) 08/02/18 12:03 Seg Neutrophils # 4.4 K/mm3 (1.8-7.7) 08/02/18 12:03 PT 13.0 Sec. (12.2-14.9) 08/02/18 12:03 INR 0.93 (0.87-1.13) 08/02/18 12:03 Sodium 135 mmol/L (137-145) L 08/02/18 12:03 Potassium 3.5 mmol/L (3.6-5.0) L 08/02/18 12:03 Chloride 97.8 mmol/L (98-107) L 08/02/18 12:03 Carbon Dioxide 21 mmol/L (22-30) L 08/02/18 12:03 Anion Gap 20 mmol/L 08/02/18 12:03 BUN 14 mg/dL (7-17) 08/02/18 12:03 Creatinine 1.0 mg/dL (0.7-1.2) 08/02/18 12:03 Estimated GFR 59 ml/min 08/02/18 12:03 BUN/Creatinine Ratio 14 % 08/02/18 12:03 Glucose 229 mg/dL (65-100) H 08/02/18 12:03 POC Glucose 378 (70-105) H 08/04/18 21:26 Hemoglobin A1c 12.6 % (4-6) H 08/04/18 05:58 Calcium 9.6 mg/dL (8.4-10.2) 08/02/18 12:03 Troponin T < 0.010 ng/mL (0.00-0.029) 08/02/18 11:58 Triglycerides 1073 mg/dL (2-149) H 08/03/18 06:30 Cholesterol 302 mg/dL (50-199) H 08/03/18 06:30 LDL Cholesterol Direct TNR 08/03/18 06:30 HDL Cholesterol 27 mg/dL (40-59) L 08/03/18 06:30 Cholesterol/HDL Ratio 11.18 % 08/03/18 06:30 Urine Color Yellow (Yellow) 08/02/18 13:38 Urine Turbidity Clear (Clear) 08/02/18 13:38 Urine pH 5.0 (5.0-7.0) 08/02/18 13:38 Ur Specific [place] 1.021 (1.003-1.030) 08/02/18 13:38 Urine Protein 30 mg/dl mg/dL (Negative) 08/02/18 13:38 Urine Glucose (UA) 150 mg/dL (Negative) 08/02/18 13:38 Urine Ketones Tr mg/dL (Negative) 08/02/18 13:38 Urine Blood Neg (Negative) 08/02/18 13:38 Urine Nitrite Neg (Negative) 08/02/18 13:38 Urine Bilirubin Neg (Negative) 08/02/18 13:38 Urine Urobilinogen < 2.0 mg/dL (<2.0) 08/02/18 13:38 Ur Leukocyte Esterase Lg (Negative) 08/02/18 13:38 Urine WBC (Auto) 42.0 /HPF (0.0-6.0) H 08/02/18 13:38 Urine RBC (Auto) 3.0 /HPF (0.0-6.0) 08/02/18 13:38 U Epithel Cells (Auto) 2.0 /HPF (0-13.0) 08/02/18 13:38 Urine Mucus Few /HPF 08/02/18 13:38 Urine Opiates Screen Presumptive negative 08/02/18 13:38 Urine Methadone Screen Presumptive negative 08/02/18 13:38 Ur Barbiturates Screen Presumptive negative 08/02/18 13:38 Ur Phencyclidine Scrn Presumptive negative 08/02/18 13:38 Ur Amphetamines Screen Presumptive negative 08/02/18 13:38 U Benzodiazepines Scrn Presumptive negative 08/02/18 13:38 Urine Cocaine Screen Presumptive negative 08/02/18 13:38 U Marijuana (THC) Screen Presumptive negative 08/02/18 13:38 Drugs of Abuse Note Disclamer 08/02/18 13:38 Nutrition/Malnutrition Assess - Dietary Evaluation Nutrition/Malnutrition Findings: Nutrition Notes Start: 08/03/18 12:54 Freq: Status: Active Protocol: Document 08/03/18 12:56 PALLAVI (Rec: 08/03/18 14:02 PALLAVI [email or web address]) Co-Sign 08/03/18 12:56 LP Nutrition Notes Need for 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 Pt. stated she was eating well prior to NPO status. Per [facility] note, pt was cleared to consume regular food consistencies and regular /thin liquids. Pt denied N/V/D , but stated she was constipated prior to having a suppository last evening. Burn Absent Trauma Absent Food Allergy No Current % PO Negligible #1 Nutrition Diagnosis No nutrition diagnosis at this time Is patient on ventilator? No Is Patient Ambulatory and/or Out of Bed Yes REE-(Wolf-St. Jeor-ambulatory/OOB) [ 1515.319 [id number]] Calculation Used for Recommendations [facility] Additional Notes Pro needs: 52-64g/day (0.8-1 g /kg BW) Fluid needs: 1 ml/kcal Nutrition Intervention Change Diet Order: Advance diet when medically feasible Revisit per MD consult or patient Sign Off request:
[2018-08-05] MEDS: VALIUM PO SCH ×2 (10:24→22:30)
[2018-08-05] MEDS: PLAVIX PO SCH (10:24)
[2018-08-05] MEDS: GLUCOTROL PO SCH ×2 (10:24→22:30)
[2018-08-05] MEDS: COZAAR PO SCH (10:24)
[2018-08-05] MEDS: HALFPRIN EC PO SCH (10:24)
[2018-08-05] MEDS: SODIUM CHLORIDE FLUSH SYRINGE 10 ML IV SCH ×2 (10:25→22:35)
[2018-08-05] MEDS: NORVASC PO SCH (10:25)
[2018-08-05] MEDS: ROCEPHIN/NS 1 GM/50 ML 1 GM/50 ML BAG IV SCH (10:32)
[2018-08-05] MEDS: TOPAMAX PO SCH ×2 (10:32→22:30)
[2018-08-05] MEDS ORDERED: LANTUS SUB-Q ONE (10:33)
[2018-08-05] MEDS: HumaLOG SUB-Q SCH ×3 (14:47→23:06)
--- NOTE | 2018-08-05 19:36 | Progress Note ---
Assessment and Plan Assessment and plan: --CVA/TIA; aspirin and statin Physical therapy occupational therapy Supportive care --Dysarthria; repeat getting hospital stay Outpatient upon discharge --History of seizure disorder; breakthrough seizures Neurology evaluated the patient, increase Topamax Ativan as needed, seizure precautions --Dyslipidemia; continue lipid-lowering medications --h/o Burgos Moyal disease; --Diabetes mellitus2; uncontrolled Accu-Chek sliding scale coverage and ADA diet, just long-acting insulin Twice a day dose, diabetic education, nutrition consult --DVT prophylaxis; lovenox Closely monitor the patient and not just the management as needed Discharge planning. per Case management I talked extensively discussed patient's condition treatment and discharge planning with the patient's power of senior trial attorney Ms.Janae Valdovinos I answered all her questions Possible discharge in 1-2 days if stable History Interval history: Patient seen and examined medical records reviewed Patient feels slightly better has seizures episode early this morning Atelectatic oriented 3 No postictal stage Vital signs noted Blood sugars uncontrolled Hospitalist Physical - Constitutional Vitals: Temp Pulse Resp BP Pulse Ox 98.3 F 139 H 20 153/105 100 08/05/18 16:11 08/05/18 16:11 08/05/18 16:11 08/05/18 16:11 08/05/18 16:11 General appearance: Present: no acute distress, well-nourished, other (slow speech) - EENT Eyes: Present: PERRL, EOM intact - Neck Neck: Present: supple, normal ROM - Respiratory Respiratory effort: normal Respiratory: bilateral: diminished, negative: rales, rhonchi, wheezing - Cardiovascular Rhythm: regular Heart Sounds: Present: S1 & S2 - Extremities Extremities: no ischemia, No edema - Abdominal General gastrointestinal: soft, non-tender, non-distended, normal bowel sounds - Integumentary Integumentary: Present: clear, warm - Psychiatric Psychiatric: appropriate mood/affect, cooperative - Neurologic Neurologic: CNII-XII intact, moves all extremities Results - Labs CBC & Chem 7: 08/02/18 12:03 08/02/18 12:03 Labs: Laboratory Last Values WBC 8.7 K/mm3 (4.5-11.0) 08/02/18 12:03 RBC 5.91 M/mm3 (3.65-5.03) H 08/02/18 12:03 Hgb 12.4 gm/dl (10.1-14.3) 08/02/18 12:03 Hct 37.9 % (30.3-42.9) 08/02/18 12:03 MCV 64 fl (79-97) L 08/02/18 12:03 MCH 21 pg (28-32) L 08/02/18 12:03 MCHC 33 % (30-34) 08/02/18 12:03 RDW 15.6 % (13.2-15.2) H 08/02/18 12:03 Plt Count 276 K/mm3 (140-440) 08/02/18 12:03 Lymph % (Auto) 39.1 % (13.4-35.0) H 08/02/18 12:03 [place] % (Auto) 8.4 % (0.0-7.3) H 08/02/18 12:03 Eos % (Auto) 1.5 % (0.0-4.3) 08/02/18 12:03 Baso % (Auto) 0.6 % (0.0-1.8) 08/02/18 12:03 Lymph # 3.4 K/mm3 (1.2-5.4) 08/02/18 12:03 [place] # 0.7 K/mm3 (0.0-0.8) 08/02/18 12:03 Eos # 0.1 K/mm3 (0.0-0.4) 08/02/18 12:03 Baso # 0.0 K/mm3 (0.0-0.1) 08/02/18 12:03 Seg Neutrophils % 50.4 % (40.0-70.0) 08/02/18 12:03 Seg Neutrophils # 4.4 K/mm3 (1.8-7.7) 08/02/18 12:03 PT 13.0 Sec. (12.2-14.9) 08/02/18 12:03 INR 0.93 (0.87-1.13) 08/02/18 12:03 Sodium 135 mmol/L (137-145) L 08/02/18 12:03 Potassium 3.5 mmol/L (3.6-5.0) L 08/02/18 12:03 Chloride 97.8 mmol/L (98-107) L 08/02/18 12:03 Carbon Dioxide 21 mmol/L (22-30) L 08/02/18 12:03 Anion Gap 20 mmol/L 08/02/18 12:03 BUN 14 mg/dL (7-17) 08/02/18 12:03 Creatinine 1.0 mg/dL (0.7-1.2) 08/02/18 12:03 Estimated GFR 59 ml/min 08/02/18 12:03 BUN/Creatinine Ratio 14 % 08/02/18 12:03 Glucose 229 mg/dL (65-100) H 08/02/18 12:03 POC Glucose 298 (70-105) H 08/05/18 15:38 Hemoglobin A1c 12.6 % (4-6) H 08/04/18 05:58 Calcium 9.6 mg/dL (8.4-10.2) 08/02/18 12:03 Troponin T < 0.010 ng/mL (0.00-0.029) 08/02/18 11:58 Triglycerides 1073 mg/dL (2-149) H 08/03/18 06:30 Cholesterol 302 mg/dL (50-199) H 08/03/18 06:30 LDL Cholesterol Direct TNR 08/03/18 06:30 HDL Cholesterol 27 mg/dL (40-59) L 08/03/18 06:30 Cholesterol/HDL Ratio 11.18 % 08/03/18 06:30 Urine Color Yellow (Yellow) 08/02/18 13:38 Urine Turbidity Clear (Clear) 08/02/18 13:38 Urine pH 5.0 (5.0-7.0) 08/02/18 13:38 Ur Specific [place] 1.021 (1.003-1.030) 08/02/18 13:38 Urine Protein 30 mg/dl mg/dL (Negative) 08/02/18 13:38 Urine Glucose (UA) 150 mg/dL (Negative) 08/02/18 13:38 Urine Ketones Tr mg/dL (Negative) 08/02/18 13:38 Urine Blood Neg (Negative) 08/02/18 13:38 Urine Nitrite Neg (Negative) 08/02/18 13:38 Urine Bilirubin Neg (Negative) 08/02/18 13:38 Urine Urobilinogen < 2.0 mg/dL (<2.0) 08/02/18 13:38 Ur Leukocyte Esterase Lg (Negative) 08/02/18 13:38 Urine WBC (Auto) 42.0 /HPF (0.0-6.0) H 08/02/18 13:38 Urine RBC (Auto) 3.0 /HPF (0.0-6.0) 08/02/18 13:38 U Epithel Cells (Auto) 2.0 /HPF (0-13.0) 08/02/18 13:38 Urine Mucus Few /HPF 08/02/18 13:38 Urine Opiates Screen Presumptive negative 08/02/18 13:38 Urine Methadone Screen Presumptive negative 08/02/18 13:38 Ur Barbiturates Screen Presumptive negative 08/02/18 13:38 Ur Phencyclidine Scrn Presumptive negative 08/02/18 13:38 Ur Amphetamines Screen Presumptive negative 08/02/18 13:38 U Benzodiazepines Scrn Presumptive negative 08/02/18 13:38 Urine Cocaine Screen Presumptive negative 08/02/18 13:38 U Marijuana (THC) Screen Presumptive negative 08/02/18 13:38 Drugs of Abuse Note Disclamer 08/02/18 13:38 Nutrition/Malnutrition Assess - Dietary Evaluation Nutrition/Malnutrition Findings: Nutrition Notes Start: 08/03/18 12:54 Freq: Status: Active Protocol: Document 08/03/18 12:56 (Rec: 08/03/18 14:02 [email or web address]) Co-Sign 08/03/18 12:56 LP Nutrition Notes Need for Assessment generated from: drier tender naphthalene Initial or Follow up Brief Note Current Diagnosis Diabetes Hyperlipidemia Other Pertinent Diagnosis TBI, moyamoya disease, seizures Current Diet NPO Labs/Tests K: 3.5 Pertinent Medications Reviewed Height 4 ft 11 in Weight 63.5 kg [place] Body Weight (kg) 43.18 BMI 28.3 Intake Prior to Admission Good Weight Status Overweight Subjective/Other Information Pt screened for hx of chewing difficulty. Pt. stated she was eating well prior to NPO status. Per FX ARTIST note, pt was cleared to consume regular food consistencies and regular /thin liquids. Pt denied N/V/D , but stated she was constipated prior to having a suppository last evening. Burn Absent Trauma Absent Food Allergy No Current % PO Negligible #1 Nutrition Diagnosis No nutrition diagnosis at this time Is patient on ventilator? No Is Patient Ambulatory and/or Out of Bed Yes [facility] [ 1515.319 [id number]] Calculation Used for Recommendations [facility] Additional Notes Pro needs: 52-64g/day (0.8-1 g /kg BW) Fluid needs: 1 ml/kcal Nutrition Intervention Change Diet Order: Advance diet when medically feasible Revisit per MD consult or patient Sign Off request:
[2018-08-05] MEDS: PRAVACHOL PO SCH (22:29)
[2018-08-05] MEDS: AMBIEN PO PRN (22:30)
[2018-08-05] MEDS: LANTUS SUB-Q SCH (23:05)
[2018-08-06] MEDS ORDERED: LANTUS SUB-Q SCH (08:00)
[2018-08-06 08:30] VITALS: BP 114/78
[2018-08-06] MEDS: HALFPRIN EC PO SCH (09:57)
[2018-08-06] MEDS: COZAAR PO SCH (09:57)
[2018-08-06] MEDS: GLUCOTROL PO SCH (09:58)
[2018-08-06] MEDS: PLAVIX PO SCH (09:58)
[2018-08-06] MEDS: NORVASC PO SCH (09:58)
[2018-08-06] MEDS: VALIUM PO SCH (09:58)
[2018-08-06] MEDS: SODIUM CHLORIDE FLUSH SYRINGE 10 ML IV SCH (10:00)
[2018-08-06] MEDS: HumaLOG SUB-Q SCH ×2 (10:00→14:12)
[2018-08-06] MEDS: ROCEPHIN/NS 1 GM/50 ML 1 GM/50 ML BAG IV SCH (10:01)
[2018-08-06] MEDS: TOPAMAX PO SCH (10:15)
--- NOTE | 2018-08-06 12:58 | Discharge Summary ---
Providers - Providers Date of Admission: 08/02/18 14:30 Date of discharge: 08/06/18 Attending physician: TIEN FLORIAN 08/02/18 14:31 Occupational Therapy Evaluate and Treat [CONS] Routine Comment: Reason For Exam: Neuro deficits Physical Therapy Evaluation and Treat [CONS] Routine Comment: Reason For Exam: Neuro deficits 08/02/18 14:32 Speech Therapy Evaluation and Treat [CONS] Routine Reason For Exam: swallow eval 08/02/18 18:30 Consult to Physician [CONS] Routine Comment: Consulting Provider: LEANA ELLINGTON Physician Instructions: Reason For Exam: cva,meeks meeks Syndrome Hospitalization Reason for admission: Seizures,slurring speech Condition: Stable Pertinent studies: CT head: no acute abnormality MRI brain : old infarcts, no acute abnormality Carotid doppler: Plaque nano, < 50% stenosis MRA brain : motion artifact ECHO :EF 70-75% Hyperdynamic circulation CXR : no acute abnormality Hospital course: 48 YO F with a history of meeks meeks disease and seizure disorder was admitted through Ed after having several episodes of seizures. Patient also noted to have trouble with speech and facial twitching. not a condidate for TPA. Patient was placed on seizure precautions,antiepileptic meds dose adjusted.Had extensive CVA work up, evaluated by neurologist,received PT,OT and ST. Today patient is comfortable, has dysarthria, Vital signs stable,, Physical exam, no new changes CM set up home health and home ST. 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 with dysarthria; aspirin and statin not a candidate for TPA Physical therapy occupational therapy,speech therapy --Dysarthria; received speech therapy during hospital stay Outpatient ST upon discharge --History of seizure disorder; breakthrough seizures Neurology evaluated the patient, increase Topamax Ativan as needed, seizure precautions --Dyslipidemia; continue lipid-lowering medications --h/o [place]eeks Moyal disease; --Diabetes mellitus2; uncontrolled Accu-Chek sliding scale coverage and ADA diet, just long-acting insulin Twice a day dose, diabetic education, nutrition consult Disposition: - TO HOME OR SELFCARE Time spent for discharge: 32 min Core Measure Documentation - Palliative Care Palliative Care/ Comfort Measures: Not Applicable - Core Measures Any of the following diagnoses?: stroke - Stroke Discharge Requirements Statin for LDL = or >70 mg/dl on DC: Yes Anticoag for atrial fib/atrial flutter: Not Applicable Reason for no anticoag for AF/F on DC: Not Indicated (no afib/aflutter) Antithrombotic for ischemic stroke: Yes Exam - Constitutional Vitals: Temp Pulse Resp BP Pulse Ox 98.3 F 108 H 18 114/78 97 08/06/18 08:28 08/06/18 09:58 08/06/18 08:28 08/06/18 09:58 08/06/18 08:28 General appearance: Present: no acute distress, well-nourished - EENT Eyes: Present: PERRL, EOM intact - Neck Neck: Present: supple, normal ROM - Respiratory Respiratory effort: normal Respiratory: bilateral: diminished, negative: rales, rhonchi, wheezing - Cardiovascular Rhythm: regular Heart Sounds: Present: S1 & S2 - Extremities Extremities: no ischemia, No edema - Abdominal General gastrointestinal: Present: soft, non-tender, non-distended, normal bowel sounds - Integumentary Integumentary: Present: clear, warm - Musculoskeletal Musculoskeletal: strength equal bilaterally - Psychiatric Psychiatric: appropriate mood/affect, cooperative - Neurologic Neurologic: moves all extremities, other (dysarthria) Plan Activity: advance as tolerated, fall precautions, other (seizure precautions) Diet: diabetic Additional Instructions: Advised to follow private neurologist in 2-3 days. Seizure precautions. Outpatient speech therapy per schedule Follow up with: [facility] [Other] - 7 Days Prescriptions: Insulin Glargine,Hum.rec.anlog [Lantus] 25 units SQ BID 30 Days vial Topiramate [Topamax] 100 mg PO Q12HR #60 tablet Other Discharge Orders: Speech Therapy (Amb) Location: None Selected
== END 2018-08-06 14:00 | disposition home or self-care (01) | DRG 69 ==
LOC: EDBD → ED 11:31 → 4A 14:30 → EEVIPCON 14:30 → 4A 19:33
PROVIDERS: ADMIT Internal Medicine; ATTEND Internal Medicine
DX: G45.9 Transient cerebral ischemic attack, unspecified (principal); I67.5 Moyamoya disease; G93.40 Encephalopathy, unspecified; N39.0 Urinary tract infection, site not specified; E87.2 Acidosis; E11.9 Type 2 diabetes mellitus without complications; R29.701 NIHSS score 1; E78.5 Hyperlipidemia, unspecified; R47.1 Dysarthria and anarthria; G40.909 Epilepsy, unspecified, not intractable, without status epilepticus; Z83.3 Family history of diabetes mellitus; Z79.899 Other long term (current) drug therapy; Z79.82 Long term (current) use of aspirin; Z79.84 Long term (current) use of oral hypoglycemic drugs
CPT/HCPCS: 36415; 70450; 70544; 70551; 71045; 80048; 80061; 80307; 81001; 82962; 83036; 84484; 85025; 85610; 93005; 93010; 93306; 93880; G0378; A9270-GY; J0696; J1815; J2060; J3246; J7030